=== PATIENT | female | born 1940 | race Caucasian/White ===

== ENCOUNTER → 2024-02-23 | Day surgery (SDC) | payer OTHER, MEDICARE | END | disposition home or self-care (01) | LOC: FMAMMOTONE 12:18 | PROVIDERS: ATTEND Physician Assistant | PROC: 0HBU3ZX Excision of Left Breast, Percutaneous Approach, Diagnostic (ICD-10-PCS; principal; 2024-02-23) | DX: N60.92 Unspecified benign mammary dysplasia of left breast (principal); N64.89 Other specified disorders of breast; R92.1 Mammographic calcification found on diagnostic imaging of breast | CPT/HCPCS: 19081; 76098-TC-FY; 88305-TC; 88342-TC ==